=== PATIENT | female | born 1965 | race Two or more races ===

== ENCOUNTER 2022-09-17 10:09 | Emergency (ER) | payer SELFPAY ==
[~2022-09-17] VITALS: Ht 160 cm; Wt 78.0 kg
[2022-09-17] MEDS ORDERED: ACETAMINOPHEN 325 MG TAB PO ONE (11:15)
[2022-09-17 12:16] VITALS: BP 125/62
== END 2022-09-17 13:49 | disposition home or self-care (01) ==
LOC: ER 10:09 → EDBD 10:09 → ER 13:49
DX: S49.91XA Unspecified injury of right shoulder and upper arm, initial encounter (principal); E11.9 Type 2 diabetes mellitus without complications; I10 Essential (primary) hypertension; E78.5 Hyperlipidemia, unspecified; W01.0XXA Fall on same level from slipping, tripping and stumbling without subsequent striking against object, initial encounter; Y93.89 Activity, other specified; Y92.89 Other specified places as the place of occurrence of the external cause; Y99.8 Other external cause status
CPT/HCPCS: 73030; 73060